=== PATIENT | male | born 1975 | race Caucasian/White ===

== ENCOUNTER 2021-08-02 04:12 | Outpatient (CLI) | payer BC, SELFPAY ==
[2021-08-02 07:52] LABS: HCT 46.6 % (40.0-50.0); HGB 15.7 g/dL (13.5-17.5); MCH 33.5 pg (27.0-33.0); MCHC 33.7 % (32.0-36.0); MCV 99.4 fL (80-95); MPV 9.4 fL (8.0-11.0); Platelet Count 329 10^3/uL (130-400); RBC 4.69 10^6/uL (4.36-5.78); RDW 11.6 % (11.8-14.1); RDW-SD 42.5 fL; WBC 4.97 10^3/uL (4.4-10.8)
[2021-08-02 09:09] LABS: ALT 44 U/L (16-63); AST 26 U/L (15-37); Albumin 4.2 g/dL (3.4-5.0); Alkaline Phosphatase 65 U/L (46-116); Anion Gap 8.5 mmol/L (3-11); BUN 7 mg/dL (7-18); Bilirubin, Total 0.6 mg/dL (0.2-1.0); CO2 29.5 mmol/L (21.0-32.0); CREATININE 0.8 mg/dL (0.70-1.30); Calcium 9.5 mg/dL (8.5-10.1); Chloride 101 mmol/L (98-107); Glucose 100 mg/dL (74-106); Potassium 4.7 mmol/L (3.5-5.1); Sodium 139 mmol/L (136-145); Total Protein 7.4 g/dL (6.4-8.2)
[2021-08-02 15:00] LABS: Calculated LDL 78 mg/dL (<100); Cholesterol 163 mg/dL (<200); HDL Cholesterol 71 mg/dL (40-60); Triglyceride 70 mg/dL (<150)
== END 2021-08-02 04:13 | disposition home or self-care (01) ==
LOC: LBO 04:12
PROVIDERS: PCP Family Medicine; Visit Provider Family Medicine
DX: R03.0 Elevated blood-pressure reading, without diagnosis of hypertension (principal); R79.89 Other specified abnormal findings of blood chemistry; E87.2 Acidosis; I10 Essential (primary) hypertension
CPT/HCPCS: 36415; 80053; 80061; 85027

== ENCOUNTER 2022-06-19 14:51 | Outpatient (CLI) | payer OTHER, SELFPAY ==
--- NOTE | 2022-06-19 14:30 | DI.RAD_ITS ---
Exam(s) XR SHOULDER RT COMPLETE 2+V EXAM: XR SHOULDER RT COMPLETE 2+V CLINICAL HISTORY: shoulder pain. TECHNIQUE: 2D digital imaging was performed. Two views. COMPARISON: CR XR SHOULDER LT COMPLETE 2+V from 06/19/2022 FINDINGS: BONES: No acute fracture is present. No bony destructive lesion is seen. JOINTS: No dislocation present. Mild spurring at AC joint. Minimal spurring at inferior glenoid. G lenohumeral joint space is maintained. SOFT TISSUE: Normal. IMPRESSION: Mild degenerative changes. DATA REPOSITORY: RADIATION DOSE DELIVERED:
--- NOTE | 2022-06-19 14:30 | DI.RAD_ITS ---
Exam(s) XR SHOULDER LT COMPLETE 2+V EXAM: XR SHOULDER LT COMPLETE 2+V CLINICAL HISTORY: shoulder pain. TECHNIQUE: 2D digital imaging was performed. Two views. COMPARISON: No exams were available for comparison FINDINGS: BONES: No acute fracture is present. No bony destructive lesion is seen. JOINTS: No dislocation present. AC joint and glenohumeral joint are unremarkable. SOFT TISSUE: Normal. IMPRESSION: Unremarkable radiographs of the left shoulder. DATA REPOSITORY: RADIATION DOSE DELIVERED:
== END 2022-06-19 14:52 | disposition home or self-care (01) ==
LOC: DIORS 14:51
PROVIDERS: PCP Nurse Practitioner Family; Referring Provider Nurse Practitioner Family; Visit Provider Student in an Organized Health Care Education/Training Program
DX: M19.011 Primary osteoarthritis, right shoulder (principal); M25.512 Pain in left shoulder
CPT/HCPCS: 73030

== ENCOUNTER 2023-05-08 03:30 | Outpatient (CLI) | payer OTHER, SELFPAY ==
[2023-05-08 08:20] LABS: Alkaline Phosphatase 72 U/L (46-116); BUN 18 mg/dL (7-18); Bilirubin, Total 0.7 mg/dL (0.2-1.0); CO2 32.7 mmol/L (21.0-32.0); CREATININE 1.4 mg/dL (0.70-1.30); Calcium 9.3 mg/dL (8.5-10.1); Calculated LDL 86 mg/dL (<100); Chloride 101 mmol/L (98-107); Cholesterol 163 mg/dL (<200); Estimated GFR 63.17 (mL/min/1.73m2); Glucose 111 mg/dL (74-106); HDL Cholesterol 64 mg/dL (40-60); Potassium 4.2 mmol/L (3.5-5.1); Sodium 141 mmol/L (136-145); Total Protein 7.6 g/dL (6.4-8.2); Triglyceride 67 mg/dL (<150)
[2023-05-08 08:21] LABS: ALT 41 U/L (16-63); AST 33 U/L (15-37); Anion Gap 7.3 mmol/L (3-11)
== END 2023-05-08 03:31 | disposition home or self-care (01) ==
LOC: LBO 03:30
PROVIDERS: PCP Nurse Practitioner Family; Visit Provider Nurse Practitioner Family
DX: R79.89 Other specified abnormal findings of blood chemistry (principal); Z13.220 Encounter for screening for lipoid disorders; Z13.1 Encounter for screening for diabetes mellitus
CPT/HCPCS: 36415; 80053; 80061; 83036

== ENCOUNTER 2023-10-27 09:49 | Day surgery (SDC) | payer OTHER, SELFPAY ==
--- NOTE | 2023-10-26 19:07 | W.PM.DSUDISC ---
Date of service: 10/27/23 Time of Service: 11:57 Discharge Plan Disposition Patient Disposition: Home Condition: Good Discharge Details Reason For Visit: screening colonoscopy Attending Provider: Mert Nino Primary Care Provider: Vitor Milan Home Meds and New Rx's Prescriptions: Continued disulfiram 250 mg tablet 250 mg PO DAILY Qty: 90 3RF fluticasone propionate [Flonase Allergy Relief] 50 mcg/actuation spray,suspension 1 spray intranasal BID PRN Rx Instructions: administer into each nostril Discontinued bisacodyl [Dulcolax (bisacodyl)] 5 mg tablet,delayed release (DR/EC) 5 mg PO ONCE Qty: 4 0RF Rx Instructions: Take per colonoscopy instructions provided by ordering providers office polyethylene glycol 3350 17 gram/dose powder 17 g PO ONCE Qty: 238 0RF Rx Instructions: Take per colonoscopy instructions provided by ordering providers office Discharge Instructions Additional Instructions: Rancho, we were able to complete your colonoscopy today without any difficulty at all. Your prep was excellent, and I could see everything just fine. I do not see any signs of tumors, polyps, or any other worrisome pathology. With otherwise minimal risk factors, I recommended 10-year interval for your next screening colonoscopy. If you need anything, or have any questions in the meantime, please do not hesitate to ask. 1. If tolerated, consume a soft, low fiber diet for 1-2 days. 2[address] Do not drive, drink alcohol, operate machinery, make critical decisions, or do activities that require coordination or balance for 24 hours. 3. Because air was put into your colon during the procedure, expelling air from your rectum (passing gas or farting) is normal. 4. You may not have a bowel movement for 1-3 days because of the colonoscopy prep. This is normal. 5. Go directly to the emergency room if you notice any of the following: Develop chills (warm to touch), or if you have a thermometer and your temperature is above 101 Difficulty breathing or difficultly swallowing Persistent vomiting Severe abdominal pain, other than gas cramps Severe chest pain Black, tarry stools Any bleeding ? exceeding one tablespoon 6. Call your physician if the site where your intravenous was started becomes red, swollen, painful, and warm to touch. 7. Your physician has reviewed your pre-procedure medications. Please continue to take those medications as previously ordered. You will be given specific information/education regarding any changes to your medications before leaving. Activity:: Activity as Tolerated Diet:: As Tolerated Discharge Orders Discharge Orders: Discharge Order (Routine); Ordered 10/26/23 Ordered By: Mert Nino DS: Diagnosis Discharge Diagnosis (1) Encounter for screening colonoscopy: Status: Acute Asessment and Plan: Negative screening colonoscopy; recommend 10-year follow-up
--- NOTE | 2023-10-26 19:09 | COLE_ITS ---
Date of service: 10/27/23 Time of Service: 11:58 Colonoscopy Report Date of procedure: 10/27/23 Pre-op diagnosis general: screening colonoscopy Post-op diagnosis procedure note: other (Negative screening colonoscopy) Procedure: colonoscopy Surgeon: Mert Nino Anesthesia Type: General:No Airway Estimated blood loss (mL): 0 Pathology: none sent Complications: None Disposition: same day Indications: Rancho is a 48 year old man who needs a screening colonoscopy Prep: Miralax/Dulcolax Procedure Start Time: 11:39 Procedure End Time: 11:52 Retraction Time: 5 Findings: Normal screening colonoscopy Procedure Description: After the induction of anesthesia, and with the patient in left lateral decubitus position, I began by performing an external anorectal exam.? Perineum and skin were normal, as was the anal verge.? There was no evidence of external hemorrhoids.? Next, I performed a digital rectal exam.? I did not appreciate any abnormal findings.? Next, I advanced a colonoscope into the rectal vault.? I performed retroflexion.? This appeared normal.? Using insufflation, I then advanced the colonoscope beyond the rectal folds and into the sigmoid colon before advancing towards the cecum.? The scope was noted to be in the cecum by identification of the ileocecal valve and appendiceal orifice.? I then began withdrawing the colonoscope using repeated irrigation as necessary for full evaluation of the colonic mucosa. ?Once the scope was withdrawn to the level of the rectum, great care was taken to examine portions of the rectal folds.? I did not see any signs of tumors, polyps, or any other pathology. Finally, the scope was withdrawn and the patient was brought to the same-day surgery recovery unit as the anesthetic wore off. ?The findings and instructions were shared with the patient prior to discharge. [place] Bowel Prep [place] Bowel Prep Right Colon: 3 Left Colon: 3 Transverse Colon: 3 Total Score: 9
[2023-10-27 09:55] VITALS: BP 115/83; PULSE 64; RESP 16; TEMP 36.4; O2SAT 99
[2023-10-27] MEDS: Lactated Ringers 1,000 ML 80 ML IV (10:40)
--- NOTE | 2023-10-27 11:23 | ANES.PREOP_ITS ---
General Info Date of Service Date Performed: 10/27/23 Height: 5 ft 8.5 in Weight: 75.9 kg Body Mass Index (BMI): 25.0 Surgical Procedure: Operation Date: 10/27/23 12:05 Proposed Procedure Side Surgeon lizeth Nino MD Meds Allergies and Home Medications Allergies Allergy/AdvReac Type Severity Reaction Status Date / Time mold Allergy Unknown Other (See Verified 10/27/23 10:24 Comment) cat Allergy Unknown Other (See Uncoded 10/27/23 10:24 Comment) grass Allergy Unknown Other (See Uncoded 10/27/23 10:24 Comment) trees Allergy Unknown Other (See Uncoded 10/27/23 10:24 Comment) weeds Allergy Unknown Other (See Uncoded 10/27/23 10:24 Comment) Home Medication Medication Instructions Recorded disulfiram 250 mg tablet 250 mg PO DAILY #90 tabs 01/22/23 fluticasone propionate 50 1 spray intranasal BID PRN 10/23/23 mcg/actuation nasal spray,suspension (Flonase Allergy Relief) Current Visit Medications: Current Medications Generic Name Dose Route Start Last Admin Trade Name Freq PRN Reason Stop Dose Admin Hyoscyamine Sulfate 0.125 mg 10/26/23 19:10 Hyoscyamine 0.125 Mg Sl/Oral/Chew SL 11/25/23 19:09 DIRECTED PRN Ringer's Solution 1,000 mls @ 80 mls/hr 10/27/23 06:00 10/27/23 10:40 IV 11/23/23 23:59 80 mls/hr INFUSION JANY Administration IV Miscellaneous Supplies 1 each 10/27/23 06:00 Iv Access IV 11/23/23 23:59 DIRECTED JANY Ondansetron HCl 4 mg 10/26/23 19:10 Ondansetron 4 Mg/2 Ml Vial IVP 11/25/23 19:09 Q4H PRN PRN Nausea / Vomiting Sodium Chloride 0 ml 10/27/23 06:00 Normal Saline Flush 10 Ml Syr IV 11/23/23 23:59 PRN PRN Sodium Chloride 0 ml 10/27/23 06:00 Normal Saline 10 Ml Vial IJ 11/23/23 23:59 DIRECTED PRN Sterile Water 0 ml 10/27/23 06:00 Water,Injection,Sterile 10 Ml Vial IJ 11/23/23 23:59 DIRECTED PRN PFS Active Problems Active Problems: Problem Status Onset Code Encounter for screening colonoscopy Z12.11 Right foot pain M79.671 Arthritis of right acromioclavicular joint M19.011 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 Biceps tendinitis of left shoulder M75.22 Bilateral shoulder pain M25.511, M25.512 Allergic rhinitis J30.9 Elevated liver function tests R79.89 Elevated blood pressure reading R03.0 Alcohol abuse F10.10 Medical History Medical History Pericarditis about 2014 tx in [place] self limited-no sequelae Transaminitis History of alcohol abuse Surgical History Surgical History Norris teeth extracted Tobacco Smoking/Tobacco Use Status: Former Tobacco Use Smokeless tobacco user: chewing tobacco Passive smoking exposure: Yes Second hand exposure: Yes Alcohol Alcohol Intake: former Substance Use Substance use: Rarely Substance use type: marijuana Vital Signs and Lab Results Vital Signs Most Recent Vital Signs in EMR: Most Recent Vital Signs Temp Pulse Resp BP Pulse Ox 36.4 C L 64 16 115/83 99 10/27/23 09:55 10/27/23 09:55 10/27/23 09:55 10/27/23 09:55 10/27/23 09:55 Lab Results Blood Type / Crossmatch: No Data to Display Complete Blood Count: No Data to Display Complete Metabolic Panel: No Data to Display Liver Function Panel: No Data to Display Coagulation Panel: No Data to Display Cardiac Panel: No Data to Display Arterial Blood Gas: No Data to Display Venous Blood Gas: No Data to Display Pancreas Panel: No Data to Display Thyroid Panel: No Data to Display Infectious Disease: No Data to Display Blood Cultures: No Data to Display Toxicology Panel: No Data to Display Anesthesia Assessment and Plan Anesthesia History Personal History: No History of Anesthesia Complications Family History: No Family History of Anesthesia Complications Exercise Tolerance Exercise Tolerance: Metabolic Equivalents>4 Pertinent Negatives Pertinent Negatives: No Symptoms of GERD, No Major Pulmonary Symptoms or Complaints and No History of CVA/TIA Cardiac & Pulmonary Exam Cardiac Exam: Normal S1/S2 Heart Sounds Pulmonary Exam: Clear Bilateral Breath Sounds Implantable Cardiac Device Does patient have a Pacemaker or an ICD?: No Airway Exam Known Difficult Airway: No Mallampati Class: 1 Mouth Opening: Normal (> 3cm) Thyromental Distance: Greater than 3 cm Neck Range of Motion: Full ROM Neck Circumference: Normal Teeth Condition: Normal Dentition ASA Classification ASA Score: ASA 2 Emergency Case?: No NPO Status NPO Status: NPO Clears >2 hours, Solids >8 hours Anesthesia Plan Resuscitation Status: Full Code Anesthesia Technique: General Anesthesia Airway Planned: Natural Airway Monitors Used: Standard Monitors
[2023-10-27 11:30] VITALS: BMI 25.0
[2023-10-27 11:55] VITALS: BP 118/78; PULSE 76; RESP 18; TEMP 36.8; O2SAT 96
--- NOTE | 2023-10-27 12:04 | W.ANESPOSTOP ---
Postoperative Evaluation Date, Time and Location Date Performed: 10/27/23 Time Performed: 12:04 Patient Location: Day Surgery Unit Vital Signs Most Recent Imported Vital Signs: Most Recent Vital Signs Temp Pulse Resp BP Pulse Ox 36.8 C 76 18 118/78 96 10/27/23 11:55 10/27/23 11:55 10/27/23 11:55 10/27/23 11:55 10/27/23 11:55 Pain Score Most Recent Pain Score: Most Recent Pain Score Pain Level 0 10/27/23 09:55 Assessment Mental Status: Awake (Alert & Oriented to Patient Baseline) Airway and Respiratory Function: Patent airway with normal (patient baseline) respiratory exam Cardiovascular Function: Hemodynamically Stable Hydration Status: Adequately Hydrated Nausea & Vomiting: No Nausea or Vomiting Pain: Pt. Denies Any Pain Peripheral Nerve Block: Patient did not receive a nerve block
[2023-10-27 12:19] VITALS: BP 123/72; PULSE 61; RESP 18; TEMP 36.7; O2SAT 98
== END 2023-10-27 12:33 | disposition home or self-care (01) ==
PROVIDERS: PCP Nurse Practitioner Family; Visit Provider Surgery
PROC: 0DJD8ZZ Inspection of Lower Intestinal Tract, Via Natural or Artificial Opening Endoscopic (ICD-10-PCS; CPT 45378; principal; 2023-10-27 12:00)
DX: Z12.11 Encounter for screening for malignant neoplasm of colon (principal)
CPT/HCPCS: 45378; J2704

== ENCOUNTER 2025-05-02 14:36 | Outpatient (CLI) | payer OTHER, SELFPAY ==
[2025-05-02 13:42] LABS: Hemoglobin A1C 5.2 % (<5.7)
[2025-05-02 13:55] LABS: ALT 22 U/L (10-49); AST 27 U/L (<34); Albumin 4.4 g/dL (3.2-5.0); Alkaline Phosphatase 83 U/L (46-116); Anion Gap 8.2 mmol/L (3-11); BUN 20 mg/dL (9-23); Bilirubin, Total 0.7 mg/dL (0.2-1.2); CO2 27.8 mmol/L (20.0-31.0); Calcium 9.4 mg/dL (8.3-10.6); Chloride 103 mmol/L (98-107); Cholesterol 139 mg/dL (<200); Glucose 92 mg/dL (74-106); HDL Cholesterol 54 mg/dL (>or=40); Potassium 3.9 mmol/L (3.5-5.1); Sodium 139 mmol/L (136-145); Total Protein 7.0 g/dL (5.7-8.2)
== END 2025-05-02 14:37 | disposition home or self-care (01) ==
LOC: LBO 14:37
PROVIDERS: PCP Nurse Practitioner Family; Visit Provider Nurse Practitioner Family
DX: Z13.220 Encounter for screening for lipoid disorders (principal); Z13.1 Encounter for screening for diabetes mellitus; R79.89 Other specified abnormal findings of blood chemistry
CPT/HCPCS: 36415; 80053; 80061; 83036